=== PATIENT | female | born 1980 | race Caucasian/White ===

== ENCOUNTER → 2019-04-29 | Outpatient (CLI) | payer OTHER | LOC: MHCPAIN 08:03 | DX: G89.29 Other chronic pain (principal); M54.12 Radiculopathy, cervical region; M47.812 Spondylosis without myelopathy or radiculopathy, cervical region; R51 Headache | CPT/HCPCS: G0463 ==

== ENCOUNTER → 2019-05-19 | Outpatient (CLI) | payer OTHER | LOC: MHCPAIN 10:53 | DX: M50.20 Other cervical disc displacement, unspecified cervical region (principal); M48.02 Spinal stenosis, cervical region | CPT/HCPCS: J1100; Q9967 ==

== ENCOUNTER → 2019-05-26 | Outpatient (CLI) | payer OTHER | LOC: MHCPAIN 09:11 | DX: M47.812 Spondylosis without myelopathy or radiculopathy, cervical region (principal); G89.29 Other chronic pain | CPT/HCPCS: G0463 ==

== ENCOUNTER → 2020-08-12 | Outpatient (CLI) | payer OTHER | LOC: COL.RAD 13:35 | DX: G43.109 Migraine with aura, not intractable, without status migrainosus (principal) ==